=== PATIENT | male | born 1995 | race Two or more races ===

== ENCOUNTER 2016-08-03 20:01 | Emergency (ER) | payer MEDICAID ==
[~2016-08-03] VITALS: Ht 172.7 cm; Wt 108.9 kg
[~2016-08-03 20:01] MED LIST: GUAI600T PO
[2016-08-03 21:21] LABS: ADD UA MICROSCOPIC NO; KETONES,URINE Negative (NEGATIVE); LEUKOCYTE ESTERASE ,URINE Negative (NEGATIVE); PH,URINE 5.5 (5.0-8.0)
[2016-08-03] MEDS ORDERED: MORPHINE SULFATE INJ 4 MG/ML DISP.SYRIN ONE (21:25)
[2016-08-03] MEDS ORDERED: IV NS 0.9% 1,000 ML ONE (21:25)
[2016-08-03] MEDS ORDERED: ONDANSETRON HCL/PF 4 MG/2 ML VIAL ONE (21:25)
[2016-08-03] MEDS ORDERED: IV SET PRIMARY 1 EA INFUS.SET MC ONE (21:25)
[2016-08-03 21:27] LABS: BASOPHILS # (AUTO) 0.1 /CMM (0.0-0.2); BASOPHILS % (AUTO) 0.6 % (0.0-2.0); EOSINOPHILS # (AUTO) 1.9 /CMM (0.0-0.7); EOSINOPHILS % (AUTO) 15.5 % (0.0-6.0); HEMATOCRIT 47 % (39-51); HEMOGLOBIN 15.9 g/dL (13.5-17.5); LYMPHOCYTES # (AUTO) 1.3 /CMM (0.8-4.8); LYMPHOCYTES % (AUTO) 10.4 % (20.0-44.0); MEAN CORPUSCULAR HEMOGLOBIN 31 PG (26.0-33.0); MEAN CORPUSCULAR HGB CONC 34 g/dl (31.0-36.0); MEAN CORPUSCULAR VOLUME 91 fL (80-96); MONOCYTES # (AUTO) 0.5 /CMM (0.1-1.30); MONOCYTES % (AUTO) 4.2 % (2.0-12.0); NEUTROPHILS # (AUTO) 8.3 /CMM (1.8-8.9); NEUTROPHILS % (AUTO) 69.3 % (43.0-81.0); PLATELET COUNT (AUTO) 219 /CMM (150-450); RED BLOOD CELL COUNT(AUTO) 5.21 MIL/uL (4.5-6.0); WHITE BLOOD COUNT (AUTO) 12.1 K/uL (4.3-11.0)
[2016-08-03] MEDS ORDERED: IV NS 0.9% 1,000 ML BAG IV ONE (21:30)
[2016-08-03] MEDS ORDERED: MORPHINE SULFATE INJ 2 MG/ML DISP.SYRIN IV ONE (21:30)
[2016-08-03] MEDS ORDERED: ONDANSETRON HCL/PF 4 MG/2 ML VIAL IVP ONE (21:30)
[2016-08-03 21:37] LABS: CALCIUM, SERUM 8.6 mg/dL (8.5-10.1); CREATININE 0.9 mg/dL (0.6-1.3); POTASSIUM 3.6 mmol/L (3.5-5.1)
[2016-08-03 21:42] LABS: ALBUMIN 4.4 g/dL (3.4-5.0); BILIRUBIN,DIRECT 0.1 mg/dL (0.0-0.2); BILIRUBIN,TOTAL 0.7 mg/dL (0.2-1.0); INDIRECT BILIRUBIN 0.6 mg/dL (0.0-1.1); TOTAL PROTEIN, SERUM 7.4 g/dL (6.4-8.2)
[2016-08-03] MEDS ORDERED: IOHEXOL-300 100 ML VIAL IV ONE (21:48)
[2016-08-03] MEDS ORDERED: IV NS 0.9% 250 ML IV ONE (21:48)
[2016-08-03] MEDS ORDERED: CT SWABBABLE VALVE TRANS SET 1 EA INFUS.SET MC ONE (21:48)
[2016-08-03 22:29] LABS: DIFF TOTAL % 100 %
[2016-08-03 23:41] VITALS: BP 117/101
== END 2016-08-03 23:42 | disposition home or self-care (01) ==
LOC: ER 20:11
DX: R10.32 Left lower quadrant pain (principal); K76.0 Fatty (change of) liver, not elsewhere classified
CPT/HCPCS: 36415; 74160; 80048; 80076; 81001; 83690; 85025; 96361; 96374; 96375; 99285; A4606; J2270; J2405; J7030; J7050; Q9967; Z7610; 81000-TC

== ENCOUNTER 2016-12-17 20:27 | Emergency (ER) | payer MEDICAID ==
[~2016-12-17] VITALS: Ht 170.2 cm; Wt 72.6 kg
[2016-12-17] MEDS ORDERED: IV SET PRIMARY 1 EA INFUS.SET MC ONE (20:29)
[2016-12-17] MEDS ORDERED: IV NS 0.9% 1,000 ML ONE (20:29)
[2016-12-17] MEDS ORDERED: LORAZEPAM INJ 2 MG/ML VIAL ONE (20:30)
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
--- NOTE | 2016-12-17 20:38 | NUR ---
PT MEDICATED BY RN PER ER MD ORDER.
[2016-12-17] MEDS ORDERED: LORAZEPAM INJ 2 MG/ML VIAL IV ONE (21:00)
[2016-12-17] MEDS ORDERED: IV NS 0.9% 1,000 ML BAG IV ONE (21:00)
--- NOTE | 2016-12-17 21:47 | NUR ---
IV removed. Catheter intact and site benign. Pressure and 4x4 applied to site. No bleeding noted. Patient discharged to home in stable condition. Written and verbal after care instructions given. Patient verbalizes understanding of instruction. ambulatory with a steady gait noted. pt aaox4 no acute distress noted, resp even and unlabored. advice pt not to drive or operate any machinery due to drug use. pt verbalize understanding.
[2016-12-17 21:48] VITALS: BP 119/64
== END 2016-12-17 21:49 | disposition home or self-care (01) ==
LOC: ER 20:27
DX: F15.10 Other stimulant abuse, uncomplicated (principal); F41.9 Anxiety disorder, unspecified
CPT/HCPCS: A4606; J2060; J7030; Z7610

== ENCOUNTER 2017-02-15 18:00 | Emergency (ER) | payer MEDICAID ==
[~2017-02-15] VITALS: Ht 172.7 cm; Wt 81.6 kg
[2017-02-15 18:07] VITALS: BP 145/94
== END 2017-02-15 18:33 | disposition home or self-care (01) ==
LOC: ER 18:09
DX: M75.22 Bicipital tendinitis, left shoulder (principal)
CPT/HCPCS: 99281; A4606; Z7610; Z7502

== ENCOUNTER 2017-04-16 13:28 | Emergency (ER) | payer MEDICAID ==
[~2017-04-16] VITALS: Ht 172.7 cm; Wt 81.6 kg
[2017-04-16 13:32] VITALS: BP 127/84
[2017-04-16] MEDS ORDERED: IBUPROFEN 600 MG TABLET PO ONE ×2 (14:00→14:03)
== END 2017-04-16 14:22 | disposition home or self-care (01) ==
LOC: ER 13:30
DX: J02.9 Acute pharyngitis, unspecified (principal)
CPT/HCPCS: 87070; 87880; 99284; A4606; Z7610; 86403-TC

== ENCOUNTER 2017-04-17 20:55 | Emergency (ER) | payer MEDICAID ==
--- NOTE | 2017-04-17 22:20 | NUR ---
DURING TRIAGE; PT STATES "ANYWAY I STARTED TAKING AMOXICILLIN THEY PRESCRIBED ME YESTERDAY AND WILL CONTINUT TAKING THAT; SO AM GONNA GO HOME"
== END 2017-04-17 22:26 | disposition left against medical advice (07) ==
LOC: ER 20:55
DX: Z53.21 Procedure and treatment not carried out due to patient leaving prior to being seen by health care provider (principal)

== ENCOUNTER 2019-05-04 04:54 | Emergency (ER) | payer MEDICAID ==
[~2019-05-04] VITALS: Ht 167.6 cm; Wt 81.6 kg
[~2019-05-04 04:54] MED LIST changes: -GUAI600T PO; +GUAI600T53 PO
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
--- NOTE | 2019-05-04 05:16 | NUR ---
SCRUM MASTER AT [facility] FOR XRAY OF FINGER
--- NOTE | 2019-05-04 05:45 | NUR ---
DR. RAMSEY AT BEDSIDE PERFORMING CAUTERIZATION ON THE LEFT HAND 3RD DIGIT FINGER TO RELIEVE PRESSURE.
--- NOTE | 2019-05-04 06:06 | NUR ---
Patient discharged to home in stable condition. Written and verbal after care instructions given. Patient verbalizes understanding of instruction. Pt ambulatory with a steady gait
[2019-05-04 06:07] VITALS: BP 143/93
== END 2019-05-04 06:08 | disposition home or self-care (01) ==
LOC: ER 04:56
DX: S60.132A Contusion of left middle finger with damage to nail, initial encounter (principal); F10.10 Alcohol abuse, uncomplicated; F12.10 Cannabis abuse, uncomplicated; Y90.9 Presence of alcohol in blood, level not specified; Z79.899 Other long term (current) drug therapy; W23.0XXA Caught, crushed, jammed, or pinched between moving objects, initial encounter; Y93.89 Activity, other specified; Y92.89 Other specified places as the place of occurrence of the external cause; Y99.8 Other external cause status
CPT/HCPCS: 11740; 73130; 99283; A6403

== ENCOUNTER 2020-01-06 19:21 | Emergency (ER) | payer MEDICAID ==
[~2020-01-06] VITALS: Ht 167.6 cm; Wt 81.6 kg
[2020-01-06 19:44] VITALS: BP 153/82
[2020-01-06 20:32] LABS: BASOPHILS # (AUTO) 0.1 /CMM (0.0-0.2); BASOPHILS % (AUTO) 0.5 % (0.0-2.0); EOSINOPHILS % (AUTO) 2.7 % (0.0-6.0); HEMATOCRIT 42 % (39-51); HEMOGLOBIN 14.4 g/dL (13.5-17.5); LYMPHOCYTES % (AUTO) 16.2 % (20.0-44.0); MEAN CORPUSCULAR HGB CONC 34 g/dl (31.0-36.0); MEAN CORPUSCULAR VOLUME 91 fL (80-96); MONOCYTES % (AUTO) 7.7 % (2.0-12.0); NEUTROPHILS # (AUTO) 9.1 /CMM (1.8-8.9); NEUTROPHILS % (AUTO) 72.9 % (43.0-81.0); PLATELET COUNT (AUTO) 228 /CMM (150-450); RED BLOOD CELL COUNT(AUTO) 4.65 MIL/uL (4.5-6.0); WHITE BLOOD COUNT (AUTO) 12.5 K/uL (4.3-11.0)
[2020-01-06] MEDS ORDERED: CLINDAMYCIN HCL 150 MG CAPSULE PO ONE ×2 (21:00→21:39)
--- NOTE | 2020-01-06 21:43 | NUR ---
Prescriptions given and explained to the patient.
--- NOTE | 2020-01-06 21:43 | NUR ---
Patient discharged to home in stable condition. Written and verbal after care instructions given. Patient verbalizes understanding of instruction.
== END 2020-01-06 21:45 | disposition home or self-care (01) ==
LOC: ER 19:31
DX: L73.9 Follicular disorder, unspecified (principal); L02.231 Carbuncle of abdominal wall
CPT/HCPCS: 36415; 85025-TC